=== PATIENT | female | born 1970 | race Two or more races ===

== ENCOUNTER 2019-09-28 07:01 | Inpatient (IN) | payer OTHER ==
[~2019-09-28] VITALS: Ht 152.4 cm; Wt 77.1 kg
[2019-09-28] MEDS ORDERED: SYNTHROID112 MCG (07:21)
[2019-09-28] MEDS ORDERED: ADIPEX-P37.5 MG (07:22)
[2019-09-28] MEDS ORDERED: WELLBUTRIN XL300 MG PO (07:22)
[2019-09-28] MEDS ORDERED: SEROQUEL200 MG PO (07:23)
[2019-09-28] MEDS ORDERED: GABAPENTIN600 MG PO (07:23)
[2019-09-28] MEDS ORDERED: CLONAZEPAM2 MG PO (07:23)
[2019-09-28] MEDS ORDERED: ZITHROMAX500 MG PO (07:24)
[2019-10-05] MEDS ORDERED: ULTRAM50 MG PO (15:03)
== END 2019-10-06 07:49 | disposition home health service (06) | DRG 603 ==
LOC: ER 07:01 → SURH 13:08
PROVIDERS: ADMIT Internal Medicine
PROC: B54BZZZ Ultrasonography of Right Lower Extremity Veins (ICD-10-PCS; 2019-09-28)
PROC: B44FZZZ Ultrasonography of Right Lower Extremity Arteries (ICD-10-PCS; 2019-09-28)
PROC: BL3 Imaging, Connective Tissue, Magnetic Resonance Imaging (MRI) (ICD-10-PCS; principal; 2019-10-04)
PROC: 05HY33Z Insertion of Infusion Device into Upper Vein, Percutaneous Approach (ICD-10-PCS; 2019-10-05)
DX: L03.115 Cellulitis of right lower limb (principal); I96 Gangrene, not elsewhere classified; M86.171 Other acute osteomyelitis, right ankle and foot; F30.8 Other manic episodes; I87.2 Venous insufficiency (chronic) (peripheral); L89.892 Pressure ulcer of other site, stage 2; S91.144A Puncture wound with foreign body of right lesser toe(s) without damage to nail, initial encounter; L03.031 Cellulitis of right toe
CPT/HCPCS: 73722

== ENCOUNTER 2022-05-01 06:20 | Inpatient (IN) | payer OTHER ==
[~2022-05-01 06:20] MED LIST: ADIPEX-P37.5 MG; CLONAZEPAM2 MG PO; GABAPENTIN600 MG PO; SEROQUEL200 MG PO; SYNTHROID112 MCG; ULTRAM50 MG PO; WELLBUTRIN XL300 MG PO; ZITHROMAX500 MG PO
[2022-05-02] MEDS ORDERED: MONTELUKAST SOD10 MG (08:20)
[2022-05-02] MEDS ORDERED: GABAPENTIN600 MG (08:20)
[2022-05-02] MEDS ORDERED: AMITRIPTYLINE H10 MG (08:20)
[2022-05-02] MEDS ORDERED: CLONAZEPAM2 MG (08:20)
[2022-05-02] MEDS ORDERED: DOXYCYCLINE HY100 MG (08:20)
[2022-05-02] MEDS ORDERED: PERPHENAZINE2 MG (08:20)
[2022-05-02] MEDS ORDERED: BUPROPION XL300 MG (08:20)
[2022-05-02] MEDS ORDERED: QUETIAPINE FUM200 MG (08:20)
[2022-05-04] MEDS ORDERED: NEURONTIN300 MG PO (08:44)
[2022-05-04] MEDS ORDERED: MIRALAX17 GM PO (08:44)
[2022-05-04] MEDS ORDERED: TYLENOL ARTHRI650 MG PO (08:44)
== END 2022-05-05 09:45 | disposition home or self-care (01) | DRG 336 ==
LOC: CIR.AMB 06:20 → SURG 13:31 → O/R 13:31 → SURG 13:38
PROVIDERS: ADMIT Surgery; ATTEND Surgery
PROC: 0YU50JZ Supplement Right Inguinal Region with Synthetic Substitute, Open Approach (ICD-10-PCS; 2022-05-01)
PROC: 0WUF0JZ Supplement Abdominal Wall with Synthetic Substitute, Open Approach (ICD-10-PCS; 2022-05-01)
PROC: 0DJD0ZZ Inspection of Lower Intestinal Tract, Open Approach (ICD-10-PCS; 2022-05-01)
PROC: 0DNW4ZZ Release Peritoneum, Percutaneous Endoscopic Approach (ICD-10-PCS; principal; 2022-05-01 07:00)
PROC: 02HV33Z Insertion of Infusion Device into Superior Vena Cava, Percutaneous Approach (ICD-10-PCS; 2022-05-03)
PROC: 30233N1 Transfusion of Nonautologous Red Blood Cells into Peripheral Vein, Percutaneous Approach (ICD-10-PCS; 2022-05-04)
DX: K43.0 Incisional hernia with obstruction, without gangrene (principal); D62 Acute posthemorrhagic anemia; K22.10 Ulcer of esophagus without bleeding; K42.0 Umbilical hernia with obstruction, without gangrene; K40.90 Unilateral inguinal hernia, without obstruction or gangrene, not specified as recurrent; N73.6 Female pelvic peritoneal adhesions (postinfective); N99.4 Postprocedural pelvic peritoneal adhesions; E87.6 Hypokalemia; Z20.822 Contact with and (suspected) exposure to COVID-19; Z53.31 Laparoscopic surgical procedure converted to open procedure; E03.9 Hypothyroidism, unspecified

== ENCOUNTER → 2023-08-03 10:25 | Outpatient (CLI) | payer OTHER ==
[~2023-08-03 10:25] MED LIST changes: +AMITRIPTYLINE H10 MG; +BUPROPION XL300 MG; +CLONAZEPAM2 MG; +DOXYCYCLINE HY100 MG; +GABAPENTIN600 MG; +MIRALAX17 GM PO; +MONTELUKAST SOD10 MG; +NEURONTIN300 MG PO; +PERPHENAZINE2 MG; +QUETIAPINE FUM200 MG; +TYLENOL ARTHRI650 MG PO
== END | disposition home or self-care (01) ==
LOC: NUCLEAR 10:25
PROVIDERS: ATTEND Internal Medicine Sports Medicine
DX: I82.493 Acute embolism and thrombosis of other specified deep vein of lower extremity, bilateral (principal)

== ENCOUNTER 2024-11-21 17:58 | Emergency (ER) | payer OTHER ==
[~2024-11-21] VITALS: Ht 152.4 cm; Wt 61.2 kg
[2024-11-21] MEDS ORDERED: METHYLPREDNISOLONE SOD SUCC 125 MG VIAL ONE (19:38)
[2024-11-21] MEDS ORDERED: 0.9 % SODIUM CHLORIDE 500 ML IV ONE (19:45)
[2024-11-21] MEDS ORDERED: ONDANSETRON HCL 2 MG/ML VIAL IV ONE (19:45)
[2024-11-21] MEDS ORDERED: METHYLPREDNISOLONE SOD SUCC 125 MG VIAL IV ONE (19:45)
[2024-11-21] MEDS ORDERED: FAMOTIDINE/PF 20 MG/2 ML VIAL IV ONE (19:45)
[2024-11-21] MEDS ORDERED: SUCRALFATE 1 G TABLET PO ONE (19:45)
[2024-11-21 20:08] LABS: BASO % 0.2 % (0.1-1.2); EOS # 0.09 (0.04-0.54); EOS % 1.8 % (0.7-7.0); HEMATOCRIT 35.7 % (34.1-44.9); HEMOGLOBIN 12.1 g/dL (11.2-15.7); LYMPH % 27.6 % (19.3-53.1); MEAN CORPUSCULAR HEMOGLOBIN 31.2 pg (25.6-32.2); MONO # 0.44 (0.24-0.82); MONO % 8.7 % (4.7-12.5); NEUT # 3.13 (1.56-6.13); NEUT % 61.5 % (34.0-71.1); PLATELET COUNT 294 K/uL (163-369); RED BLOOD COUNT 3.88 M/uL (3.93-5.22); RED CELL DISTRIBUTION WIDTH 13.7 % (11.6-14.4)
[2024-11-21 20:32] LABS: ALBUMIN 3.1 gm/dL (3.4-5.0); BILIRUBIN TOTAL 0.33 mg/dL (0.3-1.2); CALCIUM 9.1 mg/dL (8.5-10.1); CREATININE SERUM 1.13 mg/dL (0.55-1.02); GFR 49.99; GLOBULINA 4.9 G/DL (2.4-3.5); POTASSIUM 3.3 mEq/L (3.5-5.1)
[2024-11-21] MEDS ORDERED: METOCLOPRAMIDE HCL 5 MG/ML VIAL IV ONE (21:00)
[2024-11-21] MEDS ORDERED: METOCLOPRAMIDE HCL 5 MG/ML VIAL ONE (21:03)
[2024-11-21] MEDS ORDERED: CARAFATE1 GM PO (22:00)
[2024-11-21] MEDS ORDERED: DICY20TA PO (22:00)
== END 2024-11-21 22:18 | disposition home or self-care (01) ==
LOC: ER 17:58
PROVIDERS: General Practice
DX: R10.13 Epigastric pain (principal); R10.9 Unspecified abdominal pain; E03.8 Other specified hypothyroidism